=== PATIENT | female | born 1970 | race Caucasian/White ===

== ENCOUNTER → 2018-02-18 | Outpatient (CLI) | payer BC, OTHER ==
--- NOTE | 2018-02-18 17:43 | WOMENS IMAGING REPORT ---
EXAM DESCRIPTION: 3D SCREENING MAMMO BILAT COMPLETED DATE/TIME: 02/18/2018 3:06 pm REASON FOR STUDY: ROUTINE SCREENING Z12.31 Z12.31 ENCNTR SCREEN MAMMOGRAM FOR MALIGNANT NEOPLASM OF URSZULA COMPARISON: None. TECHNIQUE: Standard craniocaudal and mediolateral oblique views of each breast recorded using digita l acquisition and breast tomosynthesis. LIMITATIONS: None. FINDINGS: No masses, calcifications or architectural distortion. No areas of suspicion. Read with the assistance of CAD. .[facility] - R2 Cenova Version 1.3 .[facility] - R2 Cenova Version 1.3 .[facility] - R2 Cenova Version 2.4 .[facility] [place] - R2 Cenova Version 2.4 .[facility] - R2 Macroeconomics Professor Version 9.2 IMPRESSION: NORMAL MAMMOGRAM. BIRADS 1. BREAST DENSITY: b. There are scattered areas of fibroglandular density. BIRAD: 1 NEGATIVE RECOMMENDATION: ROUTINE SCREENING Please continue yearly bilateral screening tomosynthesis in February 2019 COMMENT: The patient has been notified of the results by letter per [place] requirements. Additional no tification policies are in place for contacting patient with suspicious or incomplete findings. Quality ID #[id number]: The [employer] recommends an annual screening mammogram for women aged 40 years or over. This facility utilizes a reminder system to ensure that all patients receive reminder letters, and/or direct phone calls for appointments. This includes reminders for routine scr eening mammograms, diagnostic mammograms, or other Breast Imaging Interventions when appropriate. Th is patient will be placed in the appropriate reminder system. The [employer] (ACR) has developed recommendations for screening MRI of the breast s in certain patient populations, to be used in conjunction with mammography. Breast MRI surveillanc e may be appropriate for women with more than 20% lifetime risk of developing breast cancer as deter mined by genetic testing, significant family history of the disease, or history of mantle radiation f or Hodgkins Disease. ACR Practice Guidelines 2008. DBT Technology DBT is a type of tomographic mammography. With conventional mammography, overlapping breast tissue ma y make lesions difficult to detect, even with good compression. DBT uses an x-ray tube that rotates a round the breast, taking images at different angles. These images are then combined to create thin sl ices of the breast that the radiologist can view as a 3D reconstruction. The [employer] unit can perform full-field digital mammograms (2D imaging); or DBT (3D imaging); or both, in a combination mode that quickly performs both the mammogram and the tomosynthesis scan while the breast is still compressed. PQRS 6045F: Fluoroscopic imaging is not utilized for breast tomosynthesis. TECHNICAL DOCUMENTATION: FINDING NUMBER: (1) ASSESSMENT: (1) JOB ID: [id number] [employer]- All Rights Reserved Reading location - IP/workstation name: [email or web address]
== END ==
LOC: WI 14:56
PROVIDERS: ATTEND Family Medicine
DX: Z12.31 Encounter for screening mammogram for malignant neoplasm of breast (principal)
CPT/HCPCS: 77063; 77067

== ENCOUNTER 2019-12-13 19:32 | Emergency (ER) | payer OTHER ==
[2019-12-13 19:52] VITALS: BP 154/63
[2019-12-13] MEDS ORDERED: METOCLOPRAMIDE HCL ORAL SOLN 10 MG/10 ML UDCUP PO ONE (20:13)
[2019-12-13] MEDS ORDERED: LIDOCAINE 2% VISCOUS SOLN 15 ML UDCUP PO ONE (20:13)
[2019-12-13] MEDS ORDERED: MAG HYDROX/AL HYDROX/SIMETH SUSP 30 ML UDCUP PO ONE (20:13)
--- NOTE | 2019-12-13 20:16 | ER Document Report ---
ED Medical Screen (RME) - General Chief Complaint: Chest Pain Stated Complaint: CHEST PAIN Time Seen by Provider: 12/13/19 20:13 Primary Care Provider: OC DECKER MD [Primary Care Provider] - Follow up as needed Mode of Arrival: Carried Information source: Patient Notes: 49-year-old female presented to ED for complaint of chest pain for about 2 weeks. She states she has had a very traumatic last 3 weeks. States she broke her left ankle then she had surgery on that then she had Frost's palsy then she had some redness and pain to her left hand. She states then she had chest pain for about 2 weeks and then developed shingles last weekend and is on medicine for the shingles. She states she knows this is not the shingles she knows this is something to do with her chest. She does have an extensive history with reflux esophageal problems and multiple other medical problems. She is alert oriented respirations regular and unlabored speaking in full sentences. I have greeted and performed a rapid initial assessment of this patient. A comprehensive ED assessment and evaluation of the patient, analysis of test results and completion of medical decision making process will be conducted by an additional ED providers. TRAVEL OUTSIDE OF THE [place] IN LAST 30 DAYS: No - Related Data Allergies/Adverse Reactions: erythromycin base [Erythromycin Base] Allergy (Verified 01/03/13 01:04) Sulfa (Sulfonamide Antibiotics) Allergy (Verified 01/03/13 01:04) tetracycline [Tetracycline] Allergy (Verified 01/03/13 01:04) Home Medications: ibuprofen prn. valacyclovar 1 gm tidrobaxin prn. insulin degludec 28 units qam. myrbetriq 50 mg qday. flonase spray. levothyroxine 75 mcg. azelastine spray Past Medical History - Social History Family history: Reviewed & Not Pertinent Endocrine Medical History: Reports: Hx Diabetes Mellitus Type 1 Past Surgical History: Reports: Hx Section, Hx Cholecystectomy, Hx Gynecologic Surgery - hysterectomy 1998, vaginal sling in 2001, Hx Pancreatic Surgery - ERCP - Immunizations Hx Diphtheria, Pertussis, Tetanus Vaccination: Yes Physical Exam - Vital signs Vitals: Temp Pulse Resp BP Pulse Ox 98.1 F 93 22 H 154/63 H 97 12/13/19 19:48 12/13/19 19:48 12/13/19 19:48 12/13/19 19:48 12/13/19 19:48 Course - Vital Signs Vital signs: Temp Pulse Resp BP Pulse Ox 98.1 F 93 22 H 154/63 H 97 12/13/19 19:53 12/13/19 19:48 12/13/19 19:48 12/13/19 19:48 12/13/19 19:48 Doctor's Discharge - Discharge Referrals: OC DECKER MD [Primary Care Provider] - Follow up as needed
--- NOTE | 2019-12-13 20:56 | RADIOLOGY REPORT (SQ) ---
EXAM DESCRIPTION: CLINICAL HISTORY: 49 years Female Chest pain COMPARISON: None TECHNIQUE: PA and lateral views. FINDINGS: Cardiomediastinal silhouette is not enlarged. No acute lung pleural bone abnormalities. Presence of a round electronic device projecting in the left upper chest but outside the lungs. IMPRESSION: Unremarkable two-view study of the chest.
--- NOTE | 2019-12-14 08:06 | EKG REPORT ---
SEVERITY:- NORMAL ECG - SINUS RHYTHM : Confirmed by: Gosia Lozoya MD 14-Dec-2019 08:05:31
== END 2019-12-13 22:05 | disposition left against medical advice (07) ==
LOC: ER 19:32
DX: R07.9 Chest pain, unspecified (principal); Z88.2 Allergy status to sulfonamides; Z88.8 Allergy status to other drugs, medicaments and biological substances; Z88.1 Allergy status to other antibiotic agents; Z79.899 Other long term (current) drug therapy; E10.9 Type 1 diabetes mellitus without complications
CPT/HCPCS: 93005; 99284; 71046; 93010; J3490

== ENCOUNTER → 2019-12-21 | Outpatient (CLI) | payer BC, OTHER ==
--- NOTE | 2019-12-21 09:38 | RADIOLOGY REPORT (SQ) ---
EXAM DESCRIPTION: COOKIE SWALLOW IMAGES COMPLETED DATE/TIME: 12/21/2019 9:24 am REASON FOR STUDY: CHRONIC GERD (K21.9) K21.9 GASTRO-ESOPHAGEAL REFLUX DISEASE WITHOUT ESOPHAGITIS COMPARISON: None. TECHNIQUE: Videofluoroscopic swallowing examination was performed in conjunction with speech patholo gy. Videofluoroscopic imaging was obtained and reviewed and these are the findings: RADIATION DOSE: Fluoro time 2.23 minutes 1 images saved to PACS. LIMITATIONS: None FINDINGS: The patient was brought into the fluoro room and placed upright on a modified barium swall ow chair. The patient was then given multiple consistencies mixed with barium to swallow under live fluoroscopic video guidance. According to the Speech Pathologist there was laryngeal penetration see n with thin barium. No aspiration identified. All other consistencies were swallowed without incide nt. Please refer to the speech pathology report for further details. IMPRESSION: LARYNGEAL PENETRATION, WITHOUT ASPIRATION, SEEN WITH THIN BARIUM. PLEASE SEE SPEECH PATH OLOGIST REPORT FOR OTHER FINDINGS AND RECOMMENDATIONS. COMMENT: None Quality ID [id number]: Final reports for procedures using fluoroscopy that document radiation exposure elaina sachi, or exposure time and number of fluorographic images (if radiation exposure indices are not avail able) TECHNICAL DOCUMENTATION: JOB ID: [id number] 2010 [employer]- All Rights Reserved Reading location - IP/workstation name: [email or web address] [id number]
--- NOTE | 2019-12-21 09:50 | ST Modified Barium Swallow ---
Recommendation - Recommendations Recommendations: Recommend short course of dysphagia treatment to train patient in strategies and exercises to help increase efficiency of swallowing. Advised patient to continue to use a liquid wash with foods and to be cautious with dry or alla textures. Medical Diagnoses - Medical Diagnoses Medical Diagnosis Description & ICD-10 Code(s): k21.9, R13.10 Other Medical Diagnoses/Co-Morbidities: per patient report: reflux, esophageal webbing and dysmotility, Frost's Palsy, asthma - ICD-10 Tx Diagnosis Coding (1) Gastro-esophageal reflux disease without esophagitis ICD-10 Code(s): K21.9 - GASTRO-ESOPHAGEAL REFLUX DISEASE WITHOUT ESOPHAGITIS (2) Dysphagia, unspecified ICD-10 Code(s): R13.10 - DYSPHAGIA, UNSPECIFIED ST Modified Barium Swallow - General Date: 12/21/19 Referring Physician: Dr. Sanchez Risks/Precautions: None Date of Onset: 12/03/18 - approximate onset, patient states over 1 year Reason for Referral: difficulty swallowing - History -: Medical - Patient acted as her own historian for the assessment this day. Patient reports feeling that foods and liquids are "getting stuck", states that she at times will cough them "back up". Reports daily coughing while eating or drinking, globus sensation, and occasional choking where it "feels like I can't breath". The patient has had evaluations for esophageal dysmotility in March and June of 2019. More recently, the patient reports having Frost's Palsy in November, which impacted the right side of her face including her tongue. Is following up with neurology for this. Medications: per patient report: omeprazole, tirosint, humalog, tresiba, azelastine, flonase, methocarbanal, tramadol, pregabalin, cetirzine, myrbetriq, ibandronate, calciumetrate Allergies: per patient report: sulfa, tetracycline, erythromycin - Functional Status Prior Functional Status: INDEPENDENT: feeding - independent Current Functional Limitations: feeding - using liquid wash - Subjective Patient/caregiver goal(s): better swallow Cognitive-Linguistic Function: WNL Speech Intelligibility: WNL Current Nutritional Means: PO Current PO diet: Mechanical - cut - thin liquids Current symptoms: Coughing, c/o Globus sensation Pain: Patient reports, 0/5 - Objective Assessment: Upright, Left Lateral - Food Trials Used Food trials used: Thin liquids, Pureed, Regular The patient: Was Able to Self Feed - Oral-Motor Skills Dentition: Full Velo-pharyngeal function: Unremarkable, Other - some redness/irritation appeared present on velum/uvula Oral Motor Skills: reduced symmetry seen with labial retraction due to history of Frost's Palsy - Assessment Oral prep: Normal Labial closure: Adequate Leakage: None Mastication: Adequate Lingual Movement: Normal Oral stage: Normal for this Procedure - Pharyngeal Stage Initiation of Pharyngeal Stage Reflex: Normal Decreased laryngeal elevation: No Reduced Velopharyngeal Closure: no Reduced pressure generation: Yes - mild reduced tongue-based retraction: Yes - mild Pre-swallow pooling in valleculae: None Pre-Swallow pooling in pyriforms: None Reduced Thyro-Hyoid approximation: No Reduced epiglottic excursion: No Multiple Swallows with: Cleared w/ Liquid Assist Post-swallow residulas vallecular: Mild Post-Swallow residuals in pyriforms: Mild - Fall Risk Assessment Medications/Conditions that increase fall risks include: Antidepressants, sedatives, anti-arrhythmic, diuretic, benzodiazipenes, neuroleptics. BP regulation problems, cardiac problems, balance or gait deficits, neurological problems. Is patient considered at risk for falls: no Fall Risk Actions Taken: No action needed - Behavioral Observations During evaluation process patient: was pleasant, was cooperative, able to answer questions - Treatment / Educational Needs: Treatment/Education Needs: Treatment consisted of patient education on the role of the Speech Pathologist. Patient's plan of care and golas were communicated as well as scheduling and attendance policies. Recommendations for initial home program were shared. Patient demonstrated understanding and verbalized agreement. - Impression/Summary Laryngeal Penetration: Yes - penetration of varying degrees seen with thin liquid trials across multiple trials. Tracheal Aspiration: no Productive cough: Yes - Patient noted to have cough or throat clear reflex with penetration episodes. Patient presents with: Oral-Pharyngeal dysph. - mild Risk of Aspiration: Mild Evaluation and Findings: Patient presents with mild oropharyngeal dysphagia, characterized by mildly reduced base of tongue retraction, as well as presence of fairly consistent penetration of thin liquids, and residue with solids. Patient also demonstrated some reduced coordination of swallowing, as evidenced by inability to complete sequential swallows, but rather needed to pause between each swallow. - Recommendations Solid diet recommendations: Chopped Meat - also discussed being cautious with nuts or alla foods Liquid Diet Modification: Thin Dysphagia therapy with STOCKHOLDER: dysphagia therapy Reflux Precautions: Taught to Patient Recommended techniques: Fully Upright During Meal, Small Bites and Sips, Alternate Bites/Sips Information, Precautions and Recommendations: Patient (Written), Patient (Verbal) Other recommendations: Recommend short course of dysphagia treatment to address improved pharyngeal clearance and reduced laryngeal penetration through improving tongue base retraction and pharyngeal constriction, as well as discussing swallowing strategies. - Time Total Time: 30 - Plan of Care Strategies to optimize patient understanding include:: ongoing assessment of educational needs, implementation of educational strategies, and re-education. - - -: Thank you for the opportunity to work with this patient and his/her family. Should you have any questions about this patient's plan or progress, I can be reached at [phone].
== END ==
LOC: RAD 08:00
PROVIDERS: ATTEND Family Medicine
DX: K21.9 Gastro-esophageal reflux disease without esophagitis (principal); R13.10 Dysphagia, unspecified; G51.0 Bell's palsy; J45.909 Unspecified asthma, uncomplicated
CPT/HCPCS: 74230

== ENCOUNTER → 2020-01-09 | Outpatient (CLI) | payer OTHER ==
--- NOTE | 2020-01-09 13:12 | WOMENS IMAGING REPORT ---
EXAM DESCRIPTION: 3D SCREENING MAMMO BILAT IMAGES COMPLETED DATE/TIME: 01/09/2020 9:01 am REASON FOR STUDY: Z12.31 ENCOUNTER FOR SCREENING MAMMOGRAM FOR MALIGNANT NEOPLASM OF BREAST Z12.31 ENCNTR SCREEN MAMMOGRAM FOR MALIGNANT NEOPLASM OF URSZULA COMPARISON: 2007 EXAM PARAMETERS: Standard craniocaudal and mediolateral oblique views of each breast recorded using digital acquisition and breast tomosynthesis. Read with the assistance of CAD. .[facility] - R2 Red Lead Burner Version 9.2 LIMITATIONS: None. FINDINGS: Findings present which are benign by mammographic criteria. No suspicious masses, calcific ations or architectural distortion. Pertinent benign findings: Benign asymmetry right breast 12 o'clock position, stable. Benign mammographic findings may include one or more of the following: Smooth masses, popcorn/rim/coa rse calcifications, asymmetries, post-procedure changes, and lesions with long-standing stability. IMPRESSION: BENIGN MAMMOGRAPHIC FINDINGS. BIRADS 2 BREAST DENSITY: a. The breasts are almost entirely fatty. BIRAD: ASSESSMENT: 2 BENIGN FINDING(S) RECOMMENDATION: ROUTINE SCREENING Please continue yearly bilateral screening mammography/tomosynthesis in January 2021 COMMENT: The patient has been notified of the results by letter per MQSA requirements. Additional no tification policies are in place for contacting patient with suspicious or incomplete findings. Quality ID #[id number]: The [employer] recommends an annual screening mammogram for women aged 40 years or over. This facility utilizes a reminder system to ensure that all patients receive reminder letters, and/or direct phone calls for appointments. This includes reminders for routine scr eening mammograms, diagnostic mammograms, or other Breast Imaging Interventions when appropriate. Th is patient will be placed in the appropriate reminder system. TECHNICAL DOCUMENTATION: FINDING NUMBER: (1) ASSESSMENT: (1) JOB ID: [id number] 2010 [employer]- All Rights Reserved Reading location - IP/workstation name: [email or web address]
== END ==
LOC: WI 08:30
PROVIDERS: ATTEND Family Medicine
DX: Z12.31 Encounter for screening mammogram for malignant neoplasm of breast (principal)
CPT/HCPCS: 77063; 77067